=== PATIENT | female | born 1975 | race Caucasian/White ===

== ENCOUNTER 2016-09-13 10:15 | Emergency (ER) | payer OTHER ==
[2016-09-13 10:28] VITALS: BP 124/89; PULSE 89; TEMP 98.1; BMI 22.7
--- NOTE | 2016-09-13 10:52 | PDOC ---
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 Points of pain at PIP. No other injury Occurred: reports: just prior to arrival, this morning Severity: reports: mild, moderate Pain Location: reports: upper extremity (left hand/third digit) Modifying Factors: improves with: None Associated Symptoms (Fall): denies symptoms Past History - Travel Traveled outside of the country in the last 30 days: No Close contact w/someone who was outside of country & ill: No - Past Medical History Allergies/Adverse Reactions: Allergies Allergy/AdvReac Type Severity Reaction Status Date / Time No Known Allergies Allergy Verified 09/13/16 10:27 Home Medications: Ambulatory Orders NK [No Known Home Medication] 09/13/16 GI Disorders: Yes (stomach ulcer) - Immunization History Td Vaccination: Yes Immunization Up to Date: Yes - Psycho/Social/Smoking Cessation Hx Anxiety: No Suicidal Ideation: No Smoking Status: No Smoking History: Never smoked Years of Tobacco Use: 0 Number of Cigarettes Smoked Daily: 0 Cigars Per Day: 0 Information on smoking cessation initiated: No Hx Alcohol Use: No Drug/Substance Use Hx: No Substance Use Type: None Trauma Specific PMHX - Complaint Specific PMHX Arthritis: No Back Injury: No Neck Injury: No Hx Sacro Iliac Joint Dysfunction: No Review of Systems - Review of Systems Able to Perform ROS?: Yes Is the patient limited Tajik proficient: Yes Constitutional: Yes: See HPI. No: Symptoms Reported HEENTM: No: Symptoms Reported Musculoskeletal: Yes: Symptoms Reported, See HPI, Joint Pain, Joint Swelling Integumentary: Yes: Symptoms Reported All Other Systems: Reviewed and Negative (left third digit at PIP) *Physical Exam - Vital Signs Last Vital Signs Temp Pulse Resp BP Pulse Ox 98.1 F 89 17 124/89 100 09/13/16 10:26 09/13/16 10:26 09/13/16 10:26 09/13/16 10:26 09/13/16 10:26 - Physical Exam General Appearance: Yes: Nourished, Appropriately Dressed, Apparent Distress, Mild Distress HEENT: positive: FAITH, Normal ENT Inspection, TMs Normal, Pharynx Normal Neck: positive: Supple. negative: Tender Respiratory/Chest: positive: Lungs Clear Musculoskeletal: positive: Decreased Range of Motion (tender flexion against resistance at PIP of left third digit. Has mild tenderness at that joint, able to flex and extend against resistance to the distal aspect. Neurovascular intact distal to injury. No wrist or other finger tenderness.) Extremity: positive: Normal Capillary Refill, Tender. 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, Fully Oriented, Alert, Normal Mood/ Affect, Normal Response, Motor Strength 01/11 ED Treatment Course - RADIOLOGY Radiology Studies Ordered: Category Date Time Status FINGER(S) LEFT [RAD] Stat Radiology 09/13/16 10:49 Ordered Progress Note - Progress Note Progress Note: X-ray negative for fractures or dislocation , Finger sprain- splinted and will have clearance from department physician *DC/Admit/Observation/Transfer Diagnosis at time of Disposition: Sprain, finger Qualifiers: Encounter type: initial encounter Qualified Code(s): S63.619A - Unspecified sprain of unspecified finger, initial encounter - Discharge Dispostion Disposition: HOME Condition at time of disposition: Stable Admit: No - Patient Instructions Printed Discharge Instructions: Finger Sprain Additional Instructions: Rest, ice to area on and off for 15 minutes 4-6 times a day Avoid heavy lifting or exercise until pain and swelling is resolved or until further directed Keep area highly elevated to reduce swelling Use splints/Juan wrap as directed Followup with orthopedist in one to 2 days if not improving, if significantly improved may wait one week for followup with orthopedist May use ibuprofen 2-200 mg tablets every 6 hours as needed for pain - Post Discharge Activity Work/School Note: Back to Work
== END 2016-09-13 11:43 | disposition home or self-care (01) ==
LOC: JERFT 10:15
PROC: 2W3KX1Z Immobilization of Left Finger using Splint (ICD-10-PCS; principal; 2016-09-13)
DX: S63.633A Sprain of interphalangeal joint of left middle finger, initial encounter (principal); X50.0XXA Overexertion from strenuous movement or load, initial encounter; Y35.811A Legal intervention involving manhandling, law enforcement official injured, initial encounter; Y93.89 Activity, other specified; Y92.89 Other specified places as the place of occurrence of the external cause; Y99.0 Civilian activity done for income or pay
CPT/HCPCS: 73140-TC-LT; 99281-25

== ENCOUNTER 2017-04-20 13:25 | Emergency (ER) | payer OTHER ==
[2017-04-20 13:34] VITALS: BP 155/104; PULSE 99; TEMP 98.2; BMI 22.7
[2017-04-20] MEDS ORDERED: IBUPROFEN 600 MG TABLET (FP) PO ONE ×2 (13:57→13:59)
--- NOTE | 2017-04-20 14:04 | PDOC ---
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 States struck her back but did not complain of pain to her spine or buttocks. No head injury. Occurred: reports: just prior to arrival, this afternoon Severity: reports: mild, moderate Pain Location: reports: lower extremity (right ankle), upper extremity (left wrist) Modifying Factors: improves with: None Loss of Consciousness: no loss of consciousness Associated Symptoms (Fall): denies symptoms Past History - Travel Traveled outside of the country in the last 30 days: No Close contact w/someone who was outside of country & ill: No - Past Medical History Allergies/Adverse Reactions: Allergies Allergy/AdvReac Type Severity Reaction Status Date / Time No Known Allergies Allergy Verified 04/20/17 13:32 Home Medications: Ambulatory Orders NK [No Known Home Medication] 09/13/16 GI Disorders: Yes (stomach ulcer) - Immunization History Td Vaccination: Yes Immunization Up to Date: Yes - Psycho/Social/Smoking Cessation Hx Anxiety: No Suicidal Ideation: No Smoking Status: No Smoking History: Never smoked Years of Tobacco Use: 0 Have you smoked in the past 12 months: No Number of Cigarettes Smoked Daily: 0 Cigars Per Day: 0 Information on smoking cessation initiated: No Hx Alcohol Use: No Drug/Substance Use Hx: No Substance Use Type: None Trauma Specific PMHX - Complaint Specific PMHX Arthritis: No Back Injury: No Neck Injury: No Hx Sacro Iliac Joint Dysfunction: No Review of Systems - Review of Systems Able to Perform ROS?: Yes Is the patient limited Amharic proficient: Yes Constitutional: Yes: Symptoms Reported, See HPI HEENTM: Yes: See HPI. No: Symptoms Reported Respiratory: Yes: See HPI. No: Symptoms reported Musculoskeletal: Yes: Symptoms Reported, See HPI, Joint Pain, Joint Swelling ( left wrist and right ankle) Integumentary: Yes: Symptoms Reported, See HPI, Bruising All Other Systems: Reviewed and Negative *Physical Exam - Vital Signs Last Vital Signs Temp Pulse Resp BP Pulse Ox 98.2 F 99 H 18 155/104 100 04/20/17 13:32 04/20/17 13:32 04/20/17 13:32 04/20/17 13:32 04/20/17 13:32 - Physical Exam General Appearance: Yes: Nourished, Appropriately Dressed, Apparent Distress, Mild Distress HEENT: positive: FAITH, Normal ENT Inspection, TMs Normal, Pharynx Normal Neck: positive: Supple, Other (no C-spine tenderness, crepitus or step-offs. Mild tenderness to the upper scapular area without bruising swelling or bone deformity. Full range of motion to shoulders and arms). negative: Tender Musculoskeletal: positive: Normal Inspection. negative: Decreased Range of Motion (right ankle without tenderness) Extremity: positive: Normal Capillary Refill, Normal Inspection, Normal Range of Motion (right ankle with mild tenderness along the Achilles and medial malleolus area. No point tenderness crepitus or step-offs. Has full range of motion and neurovascular intact to toes. Negative squeeze test. No navicular or 5 if metatarsal pain.) Integumentary: positive: Normal Color, Other (ecchymoses and superficial contusion noted to the volar aspect of left wrist, has full range of motion at wrist, no distal tenderness to distal radius and ulnar, strong flexion and extension to fingers of left hand with strong machine tool operator. Has no snuffbox tenderness. 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 No significant bone injury and opted out of x-rays. We'll provide anti- inflammatories and Juan wrap *DC/Admit/Observation/Transfer Diagnosis at time of Disposition: Fall Qualifiers: Encounter type: initial encounter Qualified Code(s): W19.XXXA - Unspecified fall, initial encounter Sprain of ankle Qualifiers: Encounter type: initial encounter Involved ligament of ankle: other ligament Laterality: right Qualified Code(s): S93.491A - Sprain of other ligament of right ankle, initial encounter - Discharge Dispostion Disposition: HOME Condition at time of disposition: Stable Admit: No - Referrals Referrals: Abiel Mac MD [Staff Physician] - - Patient Instructions Printed Discharge Instructions: DI for Ankle Sprain, DI for Contusion Additional Instructions: Rest, ice to area on and off for 15 minutes 4-6 times a day Avoid heavy lifting or exercise until pain and swelling is resolved or until further directed Keep area highly elevated to reduce swelling Use splints/Juan wrap as directed Followup with orthopedist in one to 2 days if not improving, if significantly improved may wait one week for followup with orthopedist May use ibuprofen 2-200 mg tablets every 6 hours as needed for pain - Post Discharge Activity Work/School Note: Back to Work
== END 2017-04-20 14:09 | disposition home or self-care (01) ==
LOC: JERFT 13:25
DX: S93.491A Sprain of other ligament of right ankle, initial encounter (principal); W10.9XXA Fall (on) (from) unspecified stairs and steps, initial encounter; Y93.89 Activity, other specified; Y92.9 Unspecified place or not applicable; Y99.0 Civilian activity done for income or pay
CPT/HCPCS: 99281-25

== ENCOUNTER 2017-06-15 13:21 | Emergency (ER) | payer OTHER ==
[2017-06-15 13:30] VITALS: BP 141/95; PULSE 103; TEMP 98.2; BMI 23.2
[2017-06-15] MEDS ORDERED: DIPHTH,PERTUSS(ACELL),TET 0.5 ML DISP.SYRIN IM ONE (14:06)
--- NOTE | 2017-06-15 14:07 | PDOC ---
History of Present Illness - General Stated Complaint: RT INDEX INJURY, [employer] Time Seen by Provider: 06/15/17 13:48 - History of Present Illness Initial Comments: 06/15/17 14:02 CHIEF COMPLAINT: skin avulsion HISTORY OF PRESENT ILLNESS: 42 yo F [employer] presents to fast track with minor skin avulsion to R index finger while arresting someone. Patient reports "we were trying to arrest someone and I got cut, I'm not sure by what." She is unsure when her last tetanus shot was. No recent travel or sick contacts. PAST MEDICAL HISTORY: Denies past medical history FAMILY HISTORY: Denies SOCIAL HISTORY: Denies tobacco, alcohol, illicit drug use. SURGICAL HISTORY: Denies ALLERGIES: No known drug allergies REVIEW OF SYSTEMS General/Constitutional: Denies fever. Musculoskeletal: Denies joint or muscle swelling or pain. Denies neck or back pain. Skin: I got cut while arresting someone who didn't want to be arrested." PHYSICAL EXAM General Appearance: Well-appearing, appropriately dressed. No apparent distress. HEENT: EOMI, PERRLA. No conjunctival pallor. No photophobia, scleral icterus. Respiratory/Chest: Lungs CTAB. Cardiovascular: RRR. S1, S2. Musculoskeletal/Extremities: Normal inspection. FROM of all extremities, normal capillary refill. Pelvis Stable. No CVA tenderness. No tenderness to extremities, pedal edema, swelling, erythema or deformity. Integumentary: Superficial skin avulsion approximately 0.5 cm x 0.75 cm to right index finger, no bleeding. Appropriate color, dry, warm. 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 Fully oriented, alert. Appropriate mood/affect. Motor strength 5/5. No appreciable EOM palsy, facial droop or sensory deficit. Past History - Past Medical History Allergies/Adverse Reactions: Allergies Allergy/AdvReac Type Severity Reaction Status Date / Time No Known Allergies Allergy Verified 06/15/17 13:30 Home Medications: Ambulatory Orders NK [No Known Home Medication] 09/13/16 GI Disorders: Yes (stomach ulcer) - Immunization History Td Vaccination: Yes Immunization Up to Date: Yes - Suicide/Smoking/Psychosocial Hx Smoking Status: No Smoking History: Never smoked Years of Tobacco Use: 0 Have you smoked in the past 12 months: No Number of Cigarettes Smoked Daily: 0 Cigars Per Day: 0 Hx Alcohol Use: Yes (OCCASIONALLY) Drug/Substance Use Hx: No Substance Use Type: None *Physical Exam - Vital Signs Last Vital Signs Temp Pulse Resp BP Pulse Ox 98.2 F 103 H 16 141/95 97 06/15/17 13:27 06/15/17 13:27 06/15/17 13:27 06/15/17 13:27 06/15/17 13:27 Medical Decision Making - Medical Decision Making 06/15/17 14:05 42 yo F [facility] presents to fast track with minor skin avulsion to R index finger while arresting someone. -Area of injury irrigated with saline, cleansed with betadine. Xeroform dressing and bandaid applied. -tetanus given *DC/Admit/Observation/Transfer Diagnosis at time of Disposition: Skin avulsion - Discharge Dispostion Disposition: HOME Condition at time of disposition: Stable Admit: No - Patient Instructions Printed Discharge Instructions: DI for Abrasion Additional Instructions: Please keep the area of injury clean and dry for the next 24 hours. You may apply bacitracin to prevent infection for the first 1-2 days; afterwards keep clean and dry to allow for healing. If you develop any swelling, warmth, redness, or increased pain to the finger, or you develop any fever, chills, vomiting, diarrhea, or any new or worsening symptoms, please return to the ER.
== END 2017-06-15 14:10 | disposition home or self-care (01) ==
LOC: JERFT 13:21
PROC: 3E0234Z Introduction of Serum, Toxoid and Vaccine into Muscle, Percutaneous Approach (ICD-10-PCS; principal; 2017-06-15)
DX: S61.210A Laceration without foreign body of right index finger without damage to nail, initial encounter (principal); W45.8XXA Other foreign body or object entering through skin, initial encounter; Y35.891A Legal intervention involving other specified means, law enforcement official injured, initial encounter; Y93.89 Activity, other specified; Y92.9 Unspecified place or not applicable
CPT/HCPCS: 90715; 99281-25